=== PATIENT | male | born 1995 | race Caucasian/White ===

== ENCOUNTER 2019-12-06 11:00 | Outpatient (RCR) | payer OTHER, SELFPAY ==
[2019-11-09 09:26] VITALS: BMI 28.0
[2019-11-09 10:51] VITALS: BMI 28.0
[2019-12-06 12:15] VITALS: BMI 25.5
[2019-12-06 12:21] VITALS: BMI 25.5
== END 2020-02-07 23:59 | disposition home or self-care (01) ==
LOC: ANHDMC 11:00
PROVIDERS: Visit Provider Internal Medicine Endocrinology, Diabetes & Metabolism
DX: E10.65 Type 1 diabetes mellitus with hyperglycemia (principal); Z71.3 Dietary counseling and surveillance
CPT/HCPCS: 97802; 97803